=== PATIENT | male | born 1985 | race Caucasian/White ===

== ENCOUNTER 2017-03-20 03:26 | Emergency (ER) | payer BC ==
[2017-03-20 04:21] LABS: #Basophils 0.1 thou/uL (0.0-0.2); #Eosinphils 0.2 thou/uL (0.0-0.7); #Lymphocytes 2.7 thou/uL (1.20-3.40); #Monocytes 0.8 thou/uL (0.11-0.59); #Neutrophils 6.9 thou/uL (1.40-6.50); %Basophils 0.9 % (0.0-1.0); %Eosinophils 2.3 % (0.0-10.0); %Monocytes 7.8 % (0.0-10.0); %Neutrophils 63.9 % (42.0-75.0); Hemoglobin 14.4 g/dL (14.0-18.0); Mean Corpuscular HGB CONC 34.7 g/dL (32.0-36.0); Mean Corpuscular Volume 95.2 fl (80.0-94.0); Mean Platelet Volume 7.8 fL (7.4-10.4); Platelet Count 244 thou/uL (130-400); RBC Distribution Width 11.2 % (11.5-14.5); Red Blood Cell (RBC) Count 4.36 mill/uL (4.70-6.10); White Blood Cell (WBC) Count 10.8 thou/uL (4.8-10.8)
[2017-03-20 04:24] LABS: INR-International Normal Ratio 1.1; PTT 28.3 SEC (22.9-36.1); Prothrombin Time 13.9 SEC (12.0-14.7)
[2017-03-20 04:26] LABS: D-Dimer Test Less than 0.27 *mcg/mL (0.27-0.43)
[2017-03-20 04:33] LABS: ALT (SGPT) 15 U/L (8-55); AST (SGOT) 23 U/L (5-34); Albumin 4.7 g/dL (3.5-5.0); Alkaline Phosphatase 41 U/L (40-150); Anion Gap 15 mmol/L (10-20); BUN (Urea Nitrogen) 13 mg/dL (8.9-20.6); Bilirubin, Total 0.4 mg/dL (0.2-1.2); Calc. Creatinine Clearance 0 mL/min (70-130); Calcium 9.8 mg/dL (7.8-10.44); Carbon Dioxide 25 mmol/L (22-29); Chloride 104 mmol/L (98-107); Estimated GFR-MDRD 87; Globulin 3.2 g/dL (2.4-3.5); Glucose 108 mg/dL (70-105); Lipase 73 U/L (8-78); Potassium 3.7 mmol/L (3.5-5.1); Protein, Total 7.9 g/dL (6.0-8.3); Sodium 140 mmol/L (136-145)
[2017-03-20 04:34] LABS: CKMB 0.6 ng/mL (0-6.6)
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
== END 2017-03-20 05:04 | disposition home or self-care (01) ==
LOC: BURERS 03:26
DX: R07.1 Chest pain on breathing (principal); R55 Syncope and collapse; Z87.891 Personal history of nicotine dependence
CPT/HCPCS: 36415; 71010; 80053; 82553; 83690; 84484; 85025; 85379; 85610; 85730; 93005; 94760